=== PATIENT | female | born 1935 | race Two or more races ===

== ENCOUNTER → 2016-09-22 | Outpatient (CLI) | payer MEDICARE, OTHER ==
[~2016-09-22] MED LIST: ALEN35TA32 PO; ASPI-556 PO; CARV3 PO; FLUT1AER PO; HYDR25TA PO; LOSA50TA37 PO; LOTE5GEL OP; METF500T4 PO; MONT10TA21 PO; OS500 PO; SIMV-259 PO; TIOT185 IH; UMEC62.5 IH; VITAD400 PO
== END | disposition home or self-care (01) ==
LOC: RADPV 11:36
PROVIDERS: ATTEND Internal Medicine Critical Care Medicine
DX: J44.9 Chronic obstructive pulmonary disease, unspecified (principal); J98.11 Atelectasis; I70.0 Atherosclerosis of aorta; M47.814 Spondylosis without myelopathy or radiculopathy, thoracic region
CPT/HCPCS: 71020

== ENCOUNTER → 2016-10-15 | Outpatient (CLI) | payer MEDICARE, OTHER ==
[~2016-10-15] VITALS: Ht 129.5 cm; Wt 57.5 kg
[2016-10-15 10:59] VITALS: BP 138/54
== END | disposition home or self-care (01) ==
LOC: SRCNTR 10:43
PROVIDERS: ATTEND Internal Medicine Critical Care Medicine
DX: E11.9 Type 2 diabetes mellitus without complications (principal); E78.5 Hyperlipidemia, unspecified; J44.1 Chronic obstructive pulmonary disease with (acute) exacerbation; I11.0 Hypertensive heart disease with heart failure; I50.30 Unspecified diastolic (congestive) heart failure; F17.210 Nicotine dependence, cigarettes, uncomplicated
CPT/HCPCS: G0463